=== PATIENT | female | born 1955 | race Caucasian/White ===

== ENCOUNTER → 2018-04-11 08:52 | Outpatient (CLI) | payer BC, OTHER, SELFPAY ==
[2018-04-11 11:32] LABS: Free T3 2.7 pg/mL (2.18-3.98); T4 Free Direct 0.94 ng/dL (0.76-1.46); Thyroid Stim Hormone (TSH) 2.26 uIU/mL (0.358-3.74)
== END ==
PROVIDERS: Family Provider Family Medicine; PCP Family Medicine; Visit Provider Nurse Practitioner
DX: E07.9 Disorder of thyroid, unspecified (principal)
CPT/HCPCS: 36415; 84439; 84443; 84481

== ENCOUNTER → 2018-04-16 15:19 | Outpatient (CLI) | payer BC, OTHER, SELFPAY | PROVIDERS: Family Provider Family Medicine; PCP Family Medicine; Visit Provider Nurse Practitioner | DX: E03.9 Hypothyroidism, unspecified (principal) | CPT/HCPCS: 76536 ==

== ENCOUNTER → 2018-04-29 14:23 | Outpatient (CLI) | payer BC, OTHER, SELFPAY ==
--- NOTE | 2018-04-29 14:27 | RAD_ITS ---
STUDY: X-RAY - RIGHT KNEE REASON FOR EXAM: Female, 63 years old. Bilateral knee pain x1 month TECHNIQUE: 4 view(s) of the knee. COMPARISON: None. FINDINGS: Normal visualized distal femur. Normal visualized proximal tibia and fibula. Normal proximal tibiofibular articulation. There is moderate degenerative arthrosis of the medial femorotibial compartment with moderate joint space narrowing. Normal lateral femorotibial compartment. There is mild degenerative arthrosis of the patellofemoral articulation. The soft tissue structures are unremarkable. RAD/Knee 4 or More Views IMPRESSION: Degenerative arthrosis. Electronically Signed: Amos Gaona MD at 15:27 EDT , Service support ,
--- NOTE | 2018-04-29 14:27 | RAD_ITS ---
STUDY: X-RAY - LEFT KNEE REASON FOR EXAM: Female, 63 years old. Bilateral knee pain x1 month TECHNIQUE: 4 view(s) of the knee. COMPARISON: None. FINDINGS: Normal visualized distal femur. Normal visualized proximal tibia and fibula. Normal proximal tibiofibular articulation. There is moderate degenerative arthrosis of the medial femorotibial compartment with moderate joint space narrowing. Normal lateral femorotibial compartment. There is mild degenerative arthrosis of the patellofemoral articulation. The soft tissue structures are unremarkable. RAD/Knee 4 or More Views IMPRESSION: Degenerative arthrosis. Left knee has a similar appearance to the right knee. Electronically Signed: Amos Gaona MD at 15:27 EDT , Service support ,
--- NOTE | 2018-04-29 14:27 | RAD_ITS ---
STUDY: X-RAY - PELVIS REASON FOR EXAM: Female, 63 years old. Pain TECHNIQUE: One view of the pelvis was obtained. COMPARISON: None. FINDINGS: There is a non-specific bowel gas pattern. Normal visualized soft tissue structures. Normal bilateral iliac wings, sacroiliac joints and visualized sacrum. Normal visualized bilateral superior and inferior pubic rami. Normal pubic symphysis. Normal ischial tuberosities. Normal visualized right femoral head. Normal right acetabulum. Normal right hip joint. Normal visualized left femoral head. Normal left acetabulum. Normal left hip joint. RAD/Pelvis 1 or 2 Views IMPRESSION: Normal x-ray examination of the pelvis. Electronically Signed: Amos Gaona MD at 15:28 EDT , Service support ,
[2018-04-29 16:08] LABS: Erythrocyte Sedimentation Rate 17 mm/hr (0-30)
[2018-04-29 16:10] LABS: ALB/GLOB Ratio 0.9 RATIO (0.9-2.4); AST(SGOT) 19 U/L (15-37); Alanine Aminotransfer ALT/SGPT 26 U/L (13-56); Albumin, Serum 3.6 g/dL (3.2-5.0); Alkaline Phosphatase 110 U/L (45-117); Anion Gap 9 (5-15); BUN 11 mg/dL (7-18); BUN/Creat Ratio 18.2 RATIO (10-20); CRP 6.47 mg/L (0.0-3.0); Calcium,Total 9.1 mg/dL (8.5-10.1); Chloride 108 mmol/L (98-107); EST Glomerular Filtration Rate 106 mL/min (>60); Est Glom Filt Rate - Afr Amer 128 mL/min (>60); Globulin 4.2 g/dL (2.2-4.2); Glucose 89 mg/dL (74-106); Potassium 4.5 mmol/L (3.5-5.1); Protein, Total 7.8 g/dL (6.4-8.2); Rheumatoid Factor < 10.0 IU/mL (<15); Sodium Level 146 mmol/L (136-145)
[2018-04-29 16:18] LABS: Absolute Neutrophil Count 5.3 X10^3/uL (2.0-7.7); Basophil# 0.15 X10^3/uL; Basophil% 1.6 % (0-1); Eosinophil# 0.35 X10^3/uL; Eosinophils% 3.7 % (0-5); Hematocrit 45.7 % (37-47); Hemoglobin 14.3 g/dl (12.0-15.0); Lymphocyte % 30.5 % (19-41); Mean Corp Hgb Conc 31.3 g/gl (32-36); Mean Corpuscular Hgb 28.8 pg (27.0-32.0); Mean Corpuscular Volume 92.1 fL (81-99); Mean Platelet Vol. 11.5 fl (6.2-12.0); Monocyte# 0.84 X10^3/uL; Monocyte% 8.8 % (0-10); Neutrophil # 5.27 X10^3/uL (2.7-7.7); Neutrophil % 55.3 % (47-70); POSITIVE COUNT NO; POSITIVE DIFFERENTIAL NO; POSITIVE MORPHOLOGY NO; Platelet Count 320 K/mm3 (150-450); RBC Distribution Width CV 14.7 % (11.6-14.6); RBC Distribution Width SD 49.6 fl (35.1-43.9); Red Blood Count 4.96 M/mm3 (4.2-5.4); White Blood Count 9.5 K/mm3 (4.4-11.0)
[2018-05-05 12:55] LABS: CCP IgG Antibodies 12 units (0-19); HEPATITIS B SURFACE AG Negative (Negative); HLA B27 Negative (.); Hep B Surface Antibodies Non Reactive (.); Hep C Antibodies <0.1 s/co ratio (0.0-0.9)
== END ==
PROVIDERS: Family Provider Family Medicine; PCP Family Medicine; Visit Provider Internal Medicine Rheumatology
DX: M06.4 Inflammatory polyarthropathy (principal); M17.0 Bilateral primary osteoarthritis of knee; M15.9 Polyosteoarthritis, unspecified; M51.37 Other intervertebral disc degeneration, lumbosacral region; E03.9 Hypothyroidism, unspecified
CPT/HCPCS: 36415; 72170; 73564; 80053; 81374; 85025; 85652; 86140; 86200; 86431; 86706; 86803; 87340

== ENCOUNTER → 2018-06-29 16:04 | Outpatient (CLI) | payer BC, OTHER, SELFPAY ==
[2018-06-29 17:58] LABS: Absolute Lymphocyte Count 2.64 X10^3/ul (0.83-4.51); Absolute Neutrophil Count 5.9 X10^3/uL (2.0-7.7); Basophil# 0.14 X10^3/uL; Basophil% 1.4 % (0-1); Eosinophil# 0.28 X10^3/uL; Eosinophils% 2.8 % (0-5); Hematocrit 45.8 % (37-47); Hemoglobin 14.7 g/dl (12.0-15.0); Lymphocyte # 2.64 X10^3/ul (4.0); Lymphocyte % 26.3 % (19-41); Mean Corp Hgb Conc 32.1 g/gl (32-36); Mean Corpuscular Hgb 29.3 pg (27.0-32.0); Mean Corpuscular Volume 91.2 fL (81-99); Mean Platelet Vol. 11.8 fl (6.2-12.0); Monocyte# 1.08 X10^3/uL; Monocyte% 10.8 % (0-10); Neutrophil # 5.88 X10^3/uL (2.7-7.7); Neutrophil % 58.6 % (47-70); Platelet Count 342 K/mm3 (150-450); RBC Distribution Width CV 14.7 % (11.6-14.6); RBC Distribution Width SD 48.2 fl (35.1-43.9); Red Blood Count 5.02 M/mm3 (4.2-5.4)
[2018-06-29 18:03] LABS: POSITIVE COUNT NO; POSITIVE DIFFERENTIAL NO; POSITIVE MORPHOLOGY NO
[2018-06-29 18:17] LABS: ALB/GLOB Ratio 0.9 RATIO (0.9-2.4); AST(SGOT) 15 U/L (15-37); Alanine Aminotransfer ALT/SGPT 26 U/L (13-56); Albumin, Serum 3.8 g/dL (3.2-5.0); Alkaline Phosphatase 115 U/L (45-117); Anion Gap 8 (5-15); BUN 11 mg/dL (7-18); BUN/Creat Ratio 11.8 RATIO (10-20); Calcium,Total 8.4 mg/dL (8.5-10.1); Chloride 105 mmol/L (98-107); Creatinine, Serum 0.93 mg/dL (0.55-1.02); EST Glomerular Filtration Rate 64 mL/min (>60); Est Glom Filt Rate - Afr Amer 78 mL/min (>60); Globulin 4.2 g/dL (2.2-4.2); Glucose 81 mg/dL (74-106); Potassium 3.6 mmol/L (3.5-5.1); Sodium Level 143 mmol/L (136-145)
== END ==
PROVIDERS: Family Provider Family Medicine; PCP Family Medicine; Referring Provider Internal Medicine Rheumatology; Visit Provider Internal Medicine Rheumatology
DX: M06.4 Inflammatory polyarthropathy (principal); M17.0 Bilateral primary osteoarthritis of knee; M15.9 Polyosteoarthritis, unspecified; M21.40 Flat foot [pes planus] (acquired), unspecified foot; M51.37 Other intervertebral disc degeneration, lumbosacral region; E03.9 Hypothyroidism, unspecified
CPT/HCPCS: 36415; 80053; 85025

== ENCOUNTER → 2018-11-30 16:09 | Outpatient (CLI) | payer BC, OTHER, SELFPAY ==
--- NOTE | 2018-11-30 16:17 | RAD_ITS ---
STUDY: X-RAY - LUMBAR SPINE REASON FOR EXAM: Female, 63 years old. Low back pain TECHNIQUE: 5 view(s) of the lumbar spine were obtained. COMPARISON: October 17, 2011 report only FINDINGS: Normal lumbar lordosis. There is no substantial scoliosis. Grade 1 spondylolisthesis at L4-5. Mild multilevel disc space narrowing and osteophytic spurring. No evidence for acute fracture or subluxation. The soft tissue structures are unremarkable. RAD/L/S Spine Min 4 Views IMPRESSION: Moderate degenerative changes. No evidence for acute fracture or subluxation. Electronically Signed: Darion Harley MD at 21:59 EDT , Service support ,
== END ==
PROVIDERS: Family Provider Family Medicine; PCP Family Medicine; Referring Provider Family Medicine; Visit Provider Family Medicine
DX: M54.5 Low back pain (principal)
CPT/HCPCS: 72110

== ENCOUNTER → 2019-01-19 | Outpatient (CLI) | payer BC, OTHER, SELFPAY ==
[2018-04-14 13:44] VITALS: BMI 44.1
[2019-01-19 17:36] LABS: Absolute Lymphocyte Count 2.28 X10^3/ul (0.83-4.51); Absolute Neutrophil Count 6.1 X10^3/uL (2.0-7.7); Basophil# 0.16 X10^3/uL; Basophil% 1.6 % (0-1); Eosinophil# 0.35 X10^3/uL; Eosinophils% 3.5 % (0-5); Hematocrit 41.5 % (37-47); Hemoglobin 13.4 g/dl (12.0-15.0); Lymphocyte # 2.28 X10^3/ul (4.0); Lymphocyte % 22.9 % (19-41); Mean Corp Hgb Conc 32.3 g/gl (32-36); Mean Corpuscular Hgb 28.9 pg (27.0-32.0); Mean Corpuscular Volume 89.4 fL (81-99); Mean Platelet Vol. 11.3 fl (6.2-12.0); Monocyte# 1.05 X10^3/uL; Monocyte% 10.5 % (0-10); Neutrophil # 6.13 X10^3/uL (2.7-7.7); Neutrophil % 61.5 % (47-70); Platelet Count 280 K/mm3 (150-450); RBC Distribution Width CV 14.9 % (11.6-14.6); RBC Distribution Width SD 48.7 fl (35.1-43.9); Red Blood Count 4.64 M/mm3 (4.2-5.4)
[2019-01-19 17:38] LABS: ALB/GLOB Ratio 0.9 RATIO (0.9-2.4); AST(SGOT) 13 U/L (15-37); Alanine Aminotransfer ALT/SGPT 21 U/L (13-56); Albumin, Serum 3.6 g/dL (3.2-5.0); Alkaline Phosphatase 106 U/L (45-117); Anion Gap 7 (5-15); BUN 10 mg/dL (7-18); BUN/Creat Ratio 16.1 RATIO (10-20); Calcium,Total 8.6 mg/dL (8.5-10.1); Chloride 105 mmol/L (98-107); Creatinine, Serum 0.62 mg/dL (0.55-1.02); EST Glomerular Filtration Rate 102 mL/min (>60); Est Glom Filt Rate - Afr Amer 124 mL/min (>60); Globulin 3.8 g/dL (2.2-4.2); Glucose 81 mg/dL (74-106); Potassium 3.5 mmol/L (3.5-5.1); Protein, Total 7.4 g/dL (6.4-8.2); Sodium Level 142 mmol/L (136-145)
[2019-01-19 17:39] LABS: POSITIVE COUNT NO; POSITIVE DIFFERENTIAL NO; POSITIVE MORPHOLOGY NO
== END | disposition home or self-care (01) ==
LOC: MTLAB 15:47
PROVIDERS: Family Provider Family Medicine; PCP Family Medicine; Referring Provider Internal Medicine Rheumatology; Visit Provider Internal Medicine Rheumatology
DX: M06.4 Inflammatory polyarthropathy (principal); Z79.899 Other long term (current) drug therapy; M17.0 Bilateral primary osteoarthritis of knee; M15.9 Polyosteoarthritis, unspecified; M21.40 Flat foot [pes planus] (acquired), unspecified foot; M51.37 Other intervertebral disc degeneration, lumbosacral region; E03.9 Hypothyroidism, unspecified
CPT/HCPCS: 36415; 80053; 85025

== ENCOUNTER 2019-05-16 08:34 | Emergency (ER) | payer BC, OTHER, SELFPAY ==
[2019-05-16 08:35] VITALS: BP 154/85; PULSE 75; RESP 17; TEMP 36.9; O2SAT 96; BMI 46.6
--- NOTE | 2019-05-16 09:00 | ED.DCSUM_ITS ---
- ER Visit Summary Date of Service: 05/16/19 Chief Complaint: [] History of Present Illness: The patient is a 64 F who presents the emergency room with low back pain. Patient states the pain began yesterday morning when she went to get out of bed. States he has had this pain before but not as bad. She notes pain going down the right leg. She tells me she has MRI results from 2011 which demonstrated lumbar disc disease. She states at one point she did visit with a surgeon from [facility] who felt that she was not an operative candidate. Patient denies any fevers. She denies any back injections. No IV drug use. She denies any rashes. No bowel or bladder dysfunction. She denies any acute muscle weakness or loss of sensation. Physical Examination: Afebrile vital signs are stable Patient points to the lower lumbar area near the L5-S1 junction as the source of pain. There is is no erythema rash or fluctuance to suggest abscess. Neurovascular she appears intact. There are no focal neurologic deficits Emergency Department Course and Treatment: Patient will be started on Flexeril, Toradol, and a few [place]. She was advised that I would recommend a follow-up appoint with her primary care doctor if this does not improve she may need to have a repeat MRI. She was advised to return instructions. Impression: 1. Acute lumbar radiculopathy This note was generated with [employer] dictation software. It may contain incorrect words, spelling, and punctuation that were not noted in review of the chart prior to signing ED Disposition - Plan for ED Patient: Disposition: Home or Assisted Living Instructions: BACK PAIN w/ SCIATICA Prescriptions: cycloBENZAPRine HCl [Flexeril] 10 mg PO TID PRN #20 tab PRN Reason: Muscle Spasm Prescription Printed Hydrocodone Bitart/Apap 5-325 [[place] 5MG-325MG] 1 tab PO Q6H PRN PRN 3 Days #10 tab PRN Reason: Pain Prescription Printed Ketorolac [Toradol] 10 mg PO Q8H PRN #15 tab PRN Reason: pain Prescription Printed Referrals: Norbert Gregg MD [Primary Care Provider] - 1-2 Weeks
== END 2019-05-16 09:42 | disposition home or self-care (01) ==
PROVIDERS: Emergency Provider Emergency Medicine; Family Provider Family Medicine; PCP Family Medicine
DX: M54.16 Radiculopathy, lumbar region (principal); M51.36 Other intervertebral disc degeneration, lumbar region; E66.9 Obesity, unspecified; E03.9 Hypothyroidism, unspecified; M19.90 Unspecified osteoarthritis, unspecified site; Z79.899 Other long term (current) drug therapy
CPT/HCPCS: 99282

== ENCOUNTER → 2019-05-21 16:05 | Outpatient (CLI) | payer BC, OTHER, SELFPAY ==
[2019-05-16 08:35] VITALS: BMI 46.6
[2019-05-21 18:08] LABS: Free T3 2.3 pg/mL (2.18-3.98); T4 Free Direct 0.87 ng/dL (0.76-1.46); Thyroid Stim Hormone (TSH) 2.88 uIU/mL (0.358-3.74)
== END ==
PROVIDERS: Family Provider Family Medicine; PCP Family Medicine; Referring Provider Nurse Practitioner; Visit Provider Nurse Practitioner
DX: E03.9 Hypothyroidism, unspecified (principal)
CPT/HCPCS: 36415; 84439; 84443; 84481

== ENCOUNTER → 2019-07-12 16:23 | Outpatient (CLI) | payer BC, OTHER, SELFPAY ==
[2019-07-12 17:46] LABS: ALB/GLOB Ratio 1.1 RATIO (0.9-2.4); AST(SGOT) 15 U/L (15-37); Alanine Aminotransfer ALT/SGPT 20 U/L (13-56); Albumin, Serum 3.8 g/dL (3.2-5.0); Alkaline Phosphatase 104 U/L (45-117); Anion Gap 5 (5-15); BUN 10 mg/dL (7-18); BUN/Creat Ratio 13.5 RATIO (10-20); Calcium,Total 8.8 mg/dL (8.5-10.1); Chloride 109 mmol/L (98-107); Creatinine, Serum 0.74 mg/dL (0.55-1.02); EST Glomerular Filtration Rate 83 mL/min (>60); Est Glom Filt Rate - Afr Amer 101 mL/min (>60); Globulin 3.6 g/dL (2.2-4.2); Glucose 101 mg/dL (74-106); Potassium 3.5 mmol/L (3.5-5.1); Protein, Total 7.4 g/dL (6.4-8.2); Sodium Level 144 mmol/L (136-145)
[2019-07-12 18:00] LABS: Absolute Lymphocyte Count 2.23 X10^3/uL (0.83-4.51); Absolute Neutrophil Count 6.6 X10^3/uL (2.0-7.7); Basophil# 0.16 X10^3/uL; Basophil% 1.5 % (0-1); Eosinophil# 0.31 X10^3/uL; Hemoglobin 13.9 g/dL (12.0-15.0); Lymphocyte # 2.23 X10^3/ul (4.0); Lymphocyte % 21.5 % (19-41); Mean Corp Hgb Conc 31.6 g/dL (32-36); Mean Corpuscular Hgb 28.8 pg (27.0-32.0); Mean Corpuscular Volume 91.3 fL (81-99); Mean Platelet Vol. 12.1 fl (6.2-12.0); Monocyte# 1.06 X10^3/uL; Monocyte% 10.2 % (0-10); NRBC Flagged by Analyzer 0 % (0-5); Neutrophil # 6.57 X10^3/uL (2.7-7.7); Neutrophil % 63.5 % (47-70); Platelet Count 307 K/mm3 (150-450); RBC Distribution Width CV 14.2 % (11.6-14.6); RBC Distribution Width SD 47.8 fl (35.1-43.9); Red Blood Count 4.82 M/mm3 (4.2-5.4); White Blood Count 10.4 K/mm3 (4.4-11.0)
== END ==
PROVIDERS: Family Provider Family Medicine; PCP Family Medicine; Referring Provider Internal Medicine Rheumatology; Visit Provider Internal Medicine Rheumatology
DX: M06.4 Inflammatory polyarthropathy (principal); M17.0 Bilateral primary osteoarthritis of knee; M15.9 Polyosteoarthritis, unspecified; M21.40 Flat foot [pes planus] (acquired), unspecified foot; M51.37 Other intervertebral disc degeneration, lumbosacral region; E03.9 Hypothyroidism, unspecified
CPT/HCPCS: 36415; 80053; 85025

== ENCOUNTER → 2019-08-16 13:30 | Outpatient (CLI) | payer BC, OTHER, SELFPAY ==
--- NOTE | 2019-08-16 13:32 | VDLE_ITS ---
Reason For Study: BLE EDEMA RIGHT LEFT CFV is compressible, spontaneous, phasic, CFV is compressible, spontaneous, phasic, competent and demonstrates normal competent, and demonstrates normal augmentation. augmentation. FV is compressible, spontaneous, phasic, FV is compressible, spontaneous, phasic, competent and demonstrates normal competent and demonstrates normal augmentation. augmentation. POP V is compressible, spontaneous, phasic, POP V is compressible, spontaneous, phasic, competent and demonstrates normal competent and demonstrates normal augmentation. augmentation. T/P Trunk is compressible. T/P Trunk is compressible. PTV is compressible. PTV is compressible. RT PerV is compressible. LT PerV is compressible. SFJ is competent and measures 0.74 X 0.96 cm. SFJ is competent and measures 0.87 X 0.89 cm. GSV proximal thigh measures 0.46 X 0.46 cm. GSV proximal thigh measures 0.51 X 0.51 cm. GSV at knee measures 0.32 X 0.33 cm. GSV at knee measures 0.28 X 0.30 cm. GSV is competent throughout. SSV proximal calf is competent and measures SSV proximal calf is competent and measures 0.27 X 0.29 cm. 0.40 X 0.43 cm. GSV above knee is competent. Procedure GSV below knee is competent. Exam performed in department. GSV at the knee is INCOMPETENT. The study was technically difficult. The exam was diagnostic. Interpretation Summary Deep veins of the lower extremities are bilaterally patent and compressible segmentally. There is no evidence of deep vein thrombosis on either side. Valvular competence appears intact within the proximal deep venous systems bilaterally. The great saphenous veins appear bilaterally patent and compressible segmentally. Sapheno-femoral junctions are bilaterally competent . The right great saphenous vein appears segmentally competent. The left great saphenous vein is incompetent at the level of the left knee, but is otherwise competent both above and below the knee. Small saphenous veins are patent and competent bilaterally. Ordering Physician: Laura Breen Referring Physician: Norbert Gregg Performed By: Kaitlyn Payton RDCS, RVT
== END ==
PROVIDERS: Family Provider Family Medicine; PCP Family Medicine; Referring Provider Podiatrist; Visit Provider Podiatrist
DX: I87.2 Venous insufficiency (chronic) (peripheral) (principal); R60.0 Localized edema
CPT/HCPCS: 93970

== ENCOUNTER → 2019-10-02 09:26 | Outpatient (CLI) | payer BC, SELFPAY ==
[2019-10-02 10:17] LABS: Hematocrit 43.1 % (37-47); Hemoglobin 13.7 g/dL (12.0-15.0); Mean Corp Hgb Conc 31.8 g/dL (32-36); Mean Corpuscular Hgb 29.3 pg (27.0-32.0); Mean Corpuscular Volume 92.1 fL (81-99); Mean Platelet Vol. 11.5 fl (6.2-12.0); Platelet Count 271 K/mm3 (150-450); RBC Distribution Width CV 14.1 % (11.6-14.6); RBC Distribution Width SD 47.7 fl (35.1-43.9); Red Blood Count 4.68 M/mm3 (4.2-5.4); White Blood Count 7.3 K/mm3 (4.4-11.0)
[2019-10-02 11:17] LABS: AST(SGOT) 13 U/L (15-37); Alanine Aminotransfer ALT/SGPT 19 U/L (13-56); Albumin, Serum 3.4 g/dL (3.2-5.0); Alkaline Phosphatase 117 U/L (45-117); Anion Gap 3 (5-15); BUN 8 mg/dL (7-18); BUN/Creat Ratio 14.2 RATIO (10-20); Calcium,Total 8.9 mg/dL (8.5-10.1); Chloride 111 mmol/L (98-107); Cholesterol 190 mg/dL (200); Creatinine, Serum 0.56 mg/dL (0.55-1.02); EST Glomerular Filtration Rate 114 mL/min (>60); Est Glom Filt Rate - Afr Amer 138 mL/min (>60); Globulin 3.5 g/dL (2.2-4.2); Glucose 89 mg/dL (74-106); High Density Lipoprotein 45 mg/dL; Potassium 3.7 mmol/L (3.5-5.1); Protein, Total 6.9 g/dL (6.4-8.2); Sodium Level 143 mmol/L (136-145); Thyroid Stim Hormone (TSH) 2.51 uIU/mL (0.358-3.74); Triglycerides 93 mg/dL; Very Low Density Lipoprotein 19 mg/dL (5-40)
== END ==
PROVIDERS: PCP Family Medicine; Referring Provider Student in an Organized Health Care Education/Training Program; Visit Provider Student in an Organized Health Care Education/Training Program
DX: M17.10 Unilateral primary osteoarthritis, unspecified knee (principal); E78.00 Pure hypercholesterolemia, unspecified; E03.9 Hypothyroidism, unspecified
CPT/HCPCS: 36415; 80053; 80061; 84443; 85027

== ENCOUNTER → 2020-04-04 16:01 | Outpatient (CLI) | payer BC, SELFPAY ==
--- NOTE | 2020-04-04 16:04 | RAD_ITS ---
STUDY: X-RAY - PELVIS AND BILATERAL HIPS REASON FOR EXAM: Female, 64 years old. BILATERAL HIP AND LEG PAIN, NO INJURY TECHNIQUE: AP view of the pelvis.? 2 views of the right hip, and 2 views of the left hip were obtained. COMPARISON: None. FINDINGS: There is a non-specific bowel gas pattern. Normal visualized soft tissue structures. Normal bilateral iliac wings, sacroiliac joints and visualized sacrum. Normal bilateral superior and inferior pubic rami. Normal pubic symphysis. Normal bilateral ischial tuberosities. Normal visualized right femoral head. Mild acetabular spurring. Normal right hip joint. Normal visualized left femoral head. Mild acetabular spurring.. Normal left hip joint. RAD/Hips B/L min 2 views w/ Pelvis IMPRESSION: Mild degenerative changes of the hips.. No evidence for acute hip or pelvic fractures Electronically Signed: Darion Harley MD at 22:58 EDT , Service support ,
== END ==
PROVIDERS: PCP Student in an Organized Health Care Education/Training Program; Referring Provider Student in an Organized Health Care Education/Training Program; Visit Provider Student in an Organized Health Care Education/Training Program
DX: M16.0 Bilateral primary osteoarthritis of hip (principal)
CPT/HCPCS: 73521

== ENCOUNTER → 2020-08-02 06:19 | Outpatient (CLI) | payer BC, SELFPAY ==
[2020-06-29 16:04] VITALS: BMI 46.6
--- NOTE | 2020-08-02 06:23 | MRI_ITS ---
STUDY: MRI RIGHT KNEE REASON FOR EXAM: Right knee pain for about 9 months with difficulty bending the knee, swelling. TECHNIQUE: Standardized fat and water weighted pulse sequences were obtained in all 3 orthogonal planes. COMPARISON: Radiographs 07/24/2020. FINDINGS: There is tear/degeneration of the posterior horn and body of the medial meniscus (proton-density sagittal images 28-32; proton-density coronal images 17-22). There is mild peripheral subluxation of the medial meniscus. There is arthrosis of the medial femorotibial compartment with marginal osteophytes, chondral loss (T2 sagittal image 17) and slight subchondral cystic change of the medial femoral condyle. Normal medial collateral ligamentous complex (MCL). Normal distal semimembranosus, gracilis and semitendinosus tendons. Normal lateral meniscus. Normal hyaline cartilage of the lateral femorotibial compartment. There are small marginal osteophytes of the lateral femorotibial compartment. Normal lateral femoral condyle and tibial plateau. Normal proximal tibiofibular articulation. Normal lateral collateral (fibular) ligament. Normal popliteus tendon. Normal biceps femoris tendon. There is intrasubstance mucoid degeneration of the anterior cruciate ligament (T2 series 9 images 11, 12). There is intrasubstance mucoid degeneration of the posterior cruciate ligament (T2 sagittal images 12-14). Normal congruent patellofemoral articulation. There is arthrosis of the patellofemoral compartment with marginal osteophytes and chondral thinning (T2 sagittal images 10-12). Normal medial and lateral patellar retinaculum. Normal visualized quadriceps tendon. There is mild distal patellar tendinosis (T2 sagittal image 11). Normal Hoffa''s fat pad. There is a small joint effusion. There is a small popliteal cyst (T2 coronal images 6-8). There is mild edema in the subcutis adipose space. There is mild cystic change in the proximal tibia at the insertion sites of the cruciate ligaments. MRI/Lower Ext Joint Only (Routine) IMPRESSION: Tear/degeneration of the medial meniscus. Arthrosis of the medial femorotibial and patellofemoral compartments. Mild distal patellar tendinosis. Small joint effusion. Small popliteal cyst. Electronically Signed: Wil Cheung MD at 8:03 EST Tel , Service support ,
== END ==
PROVIDERS: PCP Student in an Organized Health Care Education/Training Program; Referring Provider Orthopaedic Surgery; Visit Provider Orthopaedic Surgery
DX: M23.91 Unspecified internal derangement of right knee (principal)
CPT/HCPCS: 73721

== ENCOUNTER → 2020-11-11 08:52 | Outpatient (CLI) | payer BC, SELFPAY ==
[2020-08-21 15:25] VITALS: BMI 47.2
[2020-11-11 09:34] LABS: Hematocrit 44.4 % (37-47); Hemoglobin 14.2 g/dL (12.0-15.0); Mean Corpuscular Hgb 29.1 pg (27.0-32.0); Mean Platelet Vol. 11.8 fl (6.2-12.0); Platelet Count 316 K/mm3 (150-450); RBC Distribution Width CV 13.9 % (11.6-14.6); RBC Distribution Width SD 46.7 fl (35.1-43.9); Red Blood Count 4.88 M/mm3 (4.2-5.4); White Blood Count 7.4 K/mm3 (4.4-11.0)
[2020-11-11 10:13] LABS: ALB/GLOB Ratio 0.9 RATIO (0.9-2.4); AST(SGOT) 13 U/L (15-37); Alanine Aminotransfer ALT/SGPT 19 U/L (13-56); Albumin, Serum 3.6 g/dL (3.2-5.0); Alkaline Phosphatase 130 U/L (45-117); Anion Gap 4 (5-15); BUN 8 mg/dL (7-18); BUN/Creat Ratio 14.7 RATIO (10-20); Calcium,Total 8.4 mg/dL (8.5-10.1); Chloride 107 mmol/L (98-107); Cholesterol 204 mg/dL (200); Creatinine, Serum 0.55 mg/dL (0.55-1.02); EST Glomerular Filtration Rate 118 mL/min (>60); Est Glom Filt Rate - Afr Amer 143 mL/min (>60); Globulin 3.8 g/dL (2.2-4.2); Glucose 87 mg/dL (74-106); High Density Lipoprotein 41 mg/dL; Potassium 3.5 mmol/L (3.5-5.1); Protein, Total 7.4 g/dL (6.4-8.2); Sodium Level 141 mmol/L (136-145); Thyroid Stim Hormone (TSH) 2.41 uIU/mL (0.358-3.74); Triglycerides 129 mg/dL; Very Low Density Lipoprotein 26 mg/dL (5-40)
== END ==
PROVIDERS: PCP Student in an Organized Health Care Education/Training Program; Referring Provider Student in an Organized Health Care Education/Training Program; Visit Provider Student in an Organized Health Care Education/Training Program
DX: E78.00 Pure hypercholesterolemia, unspecified (principal); E03.9 Hypothyroidism, unspecified
CPT/HCPCS: 36415; 80053; 80061; 84443; 85027

== ENCOUNTER 2020-12-26 16:18 | Outpatient (RCR) | payer BC, SELFPAY ==
[2020-08-21 15:25] VITALS: BMI 47.2
== END 2021-01-30 23:59 ==
LOC: IMMUN 16:18
PROVIDERS: PCP Student in an Organized Health Care Education/Training Program; Visit Provider Family Medicine
DX: Z23 Encounter for immunization (principal)
CPT/HCPCS: 0001A; 0002A; 91300

== ENCOUNTER 2021-09-22 08:51 | Outpatient (CLI) | payer BC, SELFPAY ==
[2021-09-22 09:35] LABS: Hematocrit 41.5 % (37-47); Hemoglobin 13.5 g/dL (12.0-15.0); Mean Corp Hgb Conc 32.5 g/dL (32-36); Mean Corpuscular Hgb 29.9 pg (27.0-32.0); Mean Platelet Vol. 11.1 fl (6.2-12.0); Platelet Count 282 K/mm3 (150-450); RBC Distribution Width CV 14.3 % (11.6-14.6); RBC Distribution Width SD 48.1 fl (35.1-43.9); Red Blood Count 4.51 M/mm3 (4.2-5.4); White Blood Count 7.2 K/mm3 (4.4-11.0)
[2021-09-22 09:59] LABS: ALB/GLOB Ratio 0.9 RATIO (0.9-2.4); AST(SGOT) 24 U/L (15-37); Alanine Aminotransfer ALT/SGPT 33 U/L (13-56); Albumin, Serum 3.5 g/dL (3.2-5.0); Alkaline Phosphatase 114 U/L (45-117); Anion Gap 3 (5-15); BUN 9 mg/dL (7-18); BUN/Creat Ratio 14.8 RATIO (10-20); Calcium,Total 8.4 mg/dL (8.5-10.1); Chloride 110 mmol/L (98-107); Cholesterol 206 mg/dL (200); Creatinine, Serum 0.61 mg/dL (0.55-1.02); EST Glomerular Filtration Rate 104 mL/min (>60); Est Glom Filt Rate - Afr Amer 126 mL/min (>60); Globulin 3.7 g/dL (2.2-4.2); Glucose 96 mg/dL (74-106); High Density Lipoprotein 43 mg/dL; Protein, Total 7.2 g/dL (6.4-8.2); Sodium Level 140 mmol/L (136-145); Thyroid Stim Hormone (TSH) 2.72 uIU/mL (0.358-3.74); Triglycerides 108 mg/dL; Very Low Density Lipoprotein 22 mg/dL (5-40)
[2021-09-24 08:53] LABS: Hepatitis C Antibody Non-Reactive (Nonreactive)
== END 2021-09-22 23:59 | disposition home or self-care (01) ==
PROVIDERS: PCP Student in an Organized Health Care Education/Training Program; Referring Provider Student in an Organized Health Care Education/Training Program; Visit Provider Student in an Organized Health Care Education/Training Program
DX: Z11.59 Encounter for screening for other viral diseases (principal); Z13.6 Encounter for screening for cardiovascular disorders; G51.4 Facial myokymia; E03.9 Hypothyroidism, unspecified
CPT/HCPCS: 36415; 80053; 80061; 83735; 84443; 85027; 86803

== ENCOUNTER 2021-09-28 16:09 | Outpatient (CLI) | payer BC, SELFPAY ==
[2021-09-28 17:54] LABS: Albumin, Serum 3.7 g/dL (3.2-5.0); BUN 15 mg/dL (7-18); BUN/Creat Ratio 23.1 RATIO (10-20); Calcium,Total 8.7 mg/dL (8.5-10.1); Chloride 109 mmol/L (98-107); Creatinine, Serum 0.65 mg/dL (0.55-1.02); EST Glomerular Filtration Rate 96 mL/min (>60); Est Glom Filt Rate - Afr Amer 117 mL/min (>60); Glucose 92 mg/dL (74-106); Phosphorus 2.9 mg/dL (2.5-4.9); Potassium 3.6 mmol/L (3.5-5.1); Sodium Level 141 mmol/L (136-145)
[2021-09-28 18:03] LABS: Vitamin D,25 Hydroxy 18.5 ng/mL
== END 2021-09-28 23:59 | disposition home or self-care (01) ==
LOC: LAB 16:12
PROVIDERS: PCP Student in an Organized Health Care Education/Training Program; Visit Provider Student in an Organized Health Care Education/Training Program
DX: E83.51 Hypocalcemia (principal)
CPT/HCPCS: 36415; 80069; 82306; 82330; 83970

== ENCOUNTER → 2022-04-03 | Outpatient (CLI) | payer BC, SELFPAY ==
[2022-04-03 17:34] LABS: Erythrocyte Sedimentation Rate 46 mm/hr (0-30)
[2022-04-03 17:36] LABS: Hematocrit 41.3 % (37-47); Hemoglobin 13.4 g/dL (12.0-15.0); Mean Corp Hgb Conc 32.4 g/dL (32-36); Mean Corpuscular Hgb 29.8 pg (27.0-32.0); Mean Corpuscular Volume 91.8 fL (81-99); Mean Platelet Vol. 10.9 fl (6.2-12.0); Platelet Count 432 K/mm3 (150-450); RBC Distribution Width CV 14.3 % (11.6-14.6); RBC Distribution Width SD 48.7 fl (35.1-43.9); White Blood Count 10.5 K/mm3 (4.4-11.0)
[2022-04-03 18:15] LABS: ALB/GLOB Ratio 0.8 RATIO (0.9-2.4); AST(SGOT) 16 U/L (15-37); Alanine Aminotransfer ALT/SGPT 25 U/L (13-56); Albumin, Serum 3.3 g/dL (3.2-5.0); Alkaline Phosphatase 113 U/L (45-117); Anion Gap 7 (5-15); BUN 10 mg/dL (7-18); BUN/Creat Ratio 15.6 RATIO (10-20); Chloride 106 mmol/L (98-107); Creatinine, Serum 0.64 mg/dL (0.55-1.02); EST Glomerular Filtration Rate 98 mL/min (>60); Est Glom Filt Rate - Afr Amer 118 mL/min (>60); Globulin 4.2 g/dL (2.2-4.2); Glucose 95 mg/dL (74-106); Protein, Total 7.5 g/dL (6.4-8.2); Sodium Level 141 mmol/L (136-145); Thyroid Stim Hormone (TSH) 3.24 uIU/mL (0.358-3.74)
[2022-04-03 18:28] LABS: Hemoglobin A1c 5.9 % (3.8-5.6)
== END | disposition home or self-care (01) ==
LOC: LAB 16:19
PROVIDERS: PCP Student in an Organized Health Care Education/Training Program; Visit Provider Student in an Organized Health Care Education/Training Program
DX: S81.809A Unspecified open wound, unspecified lower leg, initial encounter (principal); M79.89 Other specified soft tissue disorders; R73.09 Other abnormal glucose
CPT/HCPCS: 36415; 80053; 83036; 84443; 85027; 85652; 86140

== ENCOUNTER → 2022-04-18 | Outpatient (CLI) | payer BC, SELFPAY ==
[2022-04-18 10:33] LABS: Hematocrit 48.6 % (37-47); Hemoglobin 15.9 g/dL (12.0-15.0); Mean Corp Hgb Conc 32.7 g/dL (32-36); Mean Corpuscular Hgb 29.1 pg (27.0-32.0); Mean Corpuscular Volume 88.8 fL (81-99); Mean Platelet Vol. 11.5 fl (6.2-12.0); Platelet Count 469 K/mm3 (150-450); RBC Distribution Width SD 45.4 fl (35.1-43.9); Red Blood Count 5.47 M/mm3 (4.2-5.4); White Blood Count 10.9 K/mm3 (4.4-11.0)
[2022-04-18 10:34] LABS: Erythrocyte Sedimentation Rate 40 mm/hr (0-30)
[2022-04-18 10:59] LABS: Anion Gap 9 (5-15); BUN 20 mg/dL (7-18); BUN/Creat Ratio 13.8 RATIO (10-20); CRP 7.23 mg/L (0.0-3.0); Calcium,Total 9.4 mg/dL (8.5-10.1); Chloride 109 mmol/L (98-107); Creatinine, Serum 1.45 mg/dL (0.55-1.02); EST Glomerular Filtration Rate 38 mL/min (>60); Est Glom Filt Rate - Afr Amer 46 mL/min (>60); Glucose 122 mg/dL (74-106); Potassium 3.5 mmol/L (3.5-5.1); Sodium Level 137 mmol/L (136-145)
== END | disposition home or self-care (01) ==
LOC: LAB 10:11
PROVIDERS: PCP Student in an Organized Health Care Education/Training Program; Visit Provider Student in an Organized Health Care Education/Training Program
DX: B99.9 Unspecified infectious disease (principal); R19.7 Diarrhea, unspecified
CPT/HCPCS: 36415; 80048; 85027; 85652; 86140; 87493

== ENCOUNTER → 2022-05-14 | Outpatient (CLI) | payer BC, SELFPAY ==
[2022-05-14 10:28] LABS: Erythrocyte Sedimentation Rate 23 mm/hr (0-30)
[2022-05-14 10:29] LABS: Hematocrit 43.5 % (37-47); Hemoglobin 13.8 g/dL (12.0-15.0); Mean Corp Hgb Conc 31.7 g/dL (32-36); Mean Corpuscular Hgb 29.2 pg (27.0-32.0); Mean Corpuscular Volume 92.2 fL (81-99); Mean Platelet Vol. 12.4 fl (6.2-12.0); Platelet Count 289 K/mm3 (150-450); RBC Distribution Width CV 14.6 % (11.6-14.6); RBC Distribution Width SD 49.5 fl (35.1-43.9); Red Blood Count 4.72 M/mm3 (4.2-5.4); White Blood Count 7.4 K/mm3 (4.4-11.0)
[2022-05-14 11:03] LABS: ALB/GLOB Ratio 0.8 RATIO (0.9-2.4); AST(SGOT) 28 U/L (15-37); Alanine Aminotransfer ALT/SGPT 34 U/L (13-56); Albumin, Serum 3.2 g/dL (3.2-5.0); Alkaline Phosphatase 147 U/L (45-117); Anion Gap 4 (5-15); BUN 4 mg/dL (7-18); BUN/Creat Ratio 6.6 RATIO (10-20); CRP 9.72 mg/L (0.0-3.0); Calcium,Total 8.8 mg/dL (8.5-10.1); Chloride 108 mmol/L (98-107); Creatinine, Serum 0.61 mg/dL (0.55-1.02); EST Glomerular Filtration Rate 104 mL/min (>60); Est Glom Filt Rate - Afr Amer 126 mL/min (>60); Glucose 89 mg/dL (74-106); Potassium 3.4 mmol/L (3.5-5.1); Protein, Total 7.2 g/dL (6.4-8.2); Sodium Level 141 mmol/L (136-145)
== END | disposition home or self-care (01) ==
LOC: LAB 09:51
PROVIDERS: PCP Student in an Organized Health Care Education/Training Program; Referring Provider Student in an Organized Health Care Education/Training Program; Visit Provider Student in an Organized Health Care Education/Training Program
DX: L98.9 Disorder of the skin and subcutaneous tissue, unspecified (principal)
CPT/HCPCS: 36415; 80053; 85027; 85652; 86140

== ENCOUNTER → 2022-06-29 | Outpatient (CLI) | payer BC, SELFPAY ==
[2022-06-29 09:44] LABS: Hematocrit 41.7 % (37-47); Hemoglobin 13.4 g/dL (12.0-15.0); Mean Corp Hgb Conc 32.1 g/dL (32-36); Mean Corpuscular Hgb 29.5 pg (27.0-32.0); Mean Corpuscular Volume 91.9 fL (81-99); Mean Platelet Vol. 11.8 fl (6.2-12.0); Platelet Count 282 K/mm3 (150-450); RBC Distribution Width CV 14.7 % (11.6-14.6); RBC Distribution Width SD 49.9 fl (35.1-43.9); Red Blood Count 4.54 M/mm3 (4.2-5.4); White Blood Count 8.1 K/mm3 (4.4-11.0)
[2022-06-29 10:10] LABS: ALB/GLOB Ratio 0.9 RATIO (0.9-2.4); AST(SGOT) 30 U/L (15-37); Alanine Aminotransfer ALT/SGPT 42 U/L (13-56); Albumin, Serum 3.5 g/dL (3.2-5.0); Alkaline Phosphatase 146 U/L (45-117); Anion Gap 3 (5-15); BUN 8 mg/dL (7-18); CRP 5.62 mg/L (0.0-3.0); Calcium,Total 8.7 mg/dL (8.5-10.1); Chloride 108 mmol/L (98-107); EST Glomerular Filtration Rate 130 mL/min (>60); Est Glom Filt Rate - Afr Amer 157 mL/min (>60); Globulin 3.8 g/dL (2.2-4.2); Glucose 101 mg/dL (74-106); Potassium 3.8 mmol/L (3.5-5.1); Protein, Total 7.3 g/dL (6.4-8.2); Sodium Level 141 mmol/L (136-145); T4 Free Direct 0.87 ng/dL (0.76-1.46); Thyroid Stim Hormone (TSH) 3.63 uIU/mL (0.358-3.74)
[2022-06-29 11:13] LABS: Erythrocyte Sedimentation Rate 11 mm/hr (0-30)
== END | disposition home or self-care (01) ==
LOC: LAB 08:55
PROVIDERS: PCP Student in an Organized Health Care Education/Training Program; Visit Provider Student in an Organized Health Care Education/Training Program
DX: D64.9 Anemia, unspecified (principal); R79.82 Elevated C-reactive protein (CRP); E87.6 Hypokalemia; E03.9 Hypothyroidism, unspecified
CPT/HCPCS: 36415; 80053; 84439; 84443; 85027; 85652; 86140; 86850; 86900; 86901

== ENCOUNTER → 2022-10-05 | Outpatient (CLI) | payer BC, SELFPAY ==
[2022-10-05 09:27] LABS: Hematocrit 43.4 % (37-47); Hemoglobin 13.7 g/dL (12.0-15.0); Mean Corp Hgb Conc 31.6 g/dL (32-36); Mean Corpuscular Hgb 29.3 pg (27.0-32.0); Mean Corpuscular Volume 92.9 fL (81-99); Mean Platelet Vol. 11.3 fl (6.2-12.0); Platelet Count 287 K/mm3 (150-450); RBC Distribution Width CV 13.8 % (11.6-14.6); RBC Distribution Width SD 46.8 fl (35.1-43.9); Red Blood Count 4.67 M/mm3 (4.2-5.4); White Blood Count 7.7 K/mm3 (4.4-11.0)
[2022-10-05 09:44] LABS: Hemoglobin A1c 6.1 % (3.8-5.6)
[2022-10-05 09:57] LABS: AST(SGOT) 16 U/L (15-37); Alanine Aminotransfer ALT/SGPT 24 U/L (13-56); Albumin, Serum 3.4 g/dL (3.2-5.0); Alkaline Phosphatase 111 U/L (45-117); Anion Gap 6 (5-15); BUN 5 mg/dL (7-18); BUN/Creat Ratio 8.6 RATIO (10-20); Calcium,Total 8.5 mg/dL (8.5-10.1); Chloride 112 mmol/L (98-107); Cholesterol 220 mg/dL (200); Creatinine, Serum 0.58 mg/dL (0.55-1.02); EST Glomerular Filtration Rate 109 mL/min (>60); Est Glom Filt Rate - Afr Amer 132 mL/min (>60); Globulin 3.4 g/dL (2.2-4.2); Glucose 101 mg/dL (74-106); High Density Lipoprotein 40 mg/dL; Protein, Total 6.8 g/dL (6.4-8.2); Sodium Level 146 mmol/L (136-145); T4 Free Direct 0.96 ng/dL (0.76-1.46); Thyroid Stim Hormone (TSH) 2.55 uIU/mL (0.358-3.74); Triglycerides 99 mg/dL; Very Low Density Lipoprotein 20 mg/dL (5-40)
[2022-10-07 07:45] LABS: PTHIN 107.4 pg/mL (18.4-80.1)
[2022-10-07 08:02] LABS: Vitamin D,25 Hydroxy 22.8 ng/mL
== END | disposition home or self-care (01) ==
LOC: LAB 08:43
PROVIDERS: PCP Student in an Organized Health Care Education/Training Program; Referring Provider Student in an Organized Health Care Education/Training Program; Visit Provider Student in an Organized Health Care Education/Training Program
DX: Z13.6 Encounter for screening for cardiovascular disorders (principal); R73.03 Prediabetes; E03.9 Hypothyroidism, unspecified; E55.9 Vitamin D deficiency, unspecified
CPT/HCPCS: 36415; 80053; 80061; 82306; 83036; 83970; 84439; 84443; 85027

== ENCOUNTER → 2023-10-18 | Outpatient (CLI) | payer BC, SELFPAY ==
--- OUTSIDE RECORDS SUMMARY | 2023-10-18 08:51 | XMS RPT_ITS | CCD ---
Author Name Unknown Address [address] [place] [address] Organization [facility] Care Team Providers Care Security Flex Officer Name Role Phone Melissa Parker NP Unavailable [phone] JAYSON ROGERS DO Primary Care Physician [phone] Carmita Sargent PT Unavailable Unavailable JAYSON ROGERS DO Attending Unavailable JAYSON ROGERS DO Primary Care Unavailable JAYSON ROGERS DO Attending Unavailable JAYSON ROGERS DO Primary Care Unavailable JAYSON ROGERS DO Attending Unavailable JAYSON ROGERS DO Primary Care Unavailable Allergies Allergy Classification Reported Allergen(s) Allergy Type Date of Onset Reaction(s) Facility (7 sources) caffeine; Translations: [Caffeine] drug allergy stomach cramps, Pain [facility] Work Phone: (4 sources) [employer]WE[employer]ERS drug allergy convulsions [facility] Work Phone: (3 sources) Artificial sweetners Food allergy [facility] Medications Current Medications Medication Drug Class(es) Dates Sig (Normalized) Sig (Original) cholestyramine 4 g/4.8 g oral powder for reconstitution (1 source) Start: 04-11-2022 End: 05-11-2022 take 4 doses by mouth four times daily as needed for diarrhea cholestyramine 4 g/4.8 g oral powder for reconstitution Dose : 4 gram(s) =, Oral, QID, PRN Diarrhea, # 120 packet(s), 0 Refill(s), Pharmacy: [id number], 152.5, cm, 04/11/22 16:20:00 EDT, Height Start Date: 04/11/22 Stop Date: 05/11/22 Status: Ordered DME MISCellaneous (4 sources) Start: 02-28-2022 DME MISCellaneous See Instructions, dispense one pair of lymphedema pumps; dx I 89.0, # 1 EA, 0 Refill(s), Lymphedema, 108 Start Date: 02/28/22 Status: Ordered Completed/Discontinued Medications Medication Drug Class(es) Dates Sig (Normalized) Sig (Original) 3 MAGU SALVE (4 sources) Start: 6 3 MAGU SALVE as needed 3 MAGU SALVE Rika Brady Dossi DC cephalexin 500 mg oral capsule (1 source) Cephalosporin Antibacterial Start: 2 End: 2 cephalexin 500 mg oral capsule Dose : 500 mg = 1 cap(s), Oral, q8h, # 9 cap(s), 0 Refill(s), Pharmacy: [id number], 152.5, cm, 04/11/22 16:20:00 EDT, Height, 102 Start Date: 04/11/22 Stop Date: 04/14/22 Status: Ordered methylprednisoLONE 4 mg oral tablet (4 sources) Corticosteroid Start: 2 End: 2 MEDROL 4 MG TBPK take as directed, 5 first day, 4 the next, then 3, then 2, then 1 on last day METHYLPREDNISOLONE [id number] Ariane Clayton MULTIPLE VITAMIN (4 sources) Start: 2 take 1 tablet by mouth once daily MULTIVITAMINS CAPS One tablet by mouth daily MULTIPLE VITAMIN [id number] Ariane Clayton NOPALEA (4 sources) Start: 2 NOPALEA 4 0z daily NOPALEA Ariane Clayton SOOTHANOL X2 (4 sources) Start: 6 SOOTHANOL X2 as needed SOOTHANOL X2 Rika Vosi DC VITAMIN C 500MG (4 sources) Start: 6 VITAMIN C 500MG daily VITAMIN C 500MG Rika Vosi DC VITAMIN D3 1000IU (4 sources) Start: 6 VITAMIN D3 1000IU Daily VITAMIN D3 1000IU Rika Vela DC ZIMS MAX FREEZE (4 sources) Start: 6 ZIMS MAX FREEZE as needed ZIMS MAX FREEZE Rika Vela DC Problems Active Problems Problem Classification Problem Date Documented Date Episodic/Chronic Anxiety disorders (3 sources) Claustrophobia 03-12-2021 Chronic Cataract (3 sources) Cataract 04-17-2021 Chronic Chronic ulcer of skin (1 source) Ulcer of lower extremity 04-11-2022 Chronic Diabetes mellitus without complication (1 source) Prediabetes 04-11-2022 Episodic Heart valve disorders (3 sources) Tricuspid valve regurgitation 08-03-2019 Chronic Heart valve disorders (3 sources) Systolic murmur 07-26-2019 Episodic Lymphadenitis (2 sources) Supraclavicular lymphadenopathy 05-22-2021 Episodic Nutritional deficiencies (1 source) Vitamin D deficiency 10-01-2021 Chronic Osteoarthritis (3 sources) Osteoarthritis of knee 07-14-2019 Chronic Other bone disease and musculoskeletal deformities (20 sources) Segmental and somatic dysfunction; Translations: [Segmental and somatic dysfunction of lumbar region] Onset: 06-17-2016 06-17-2016 Episodic Other bone disease and musculoskeletal deformities (2 sources) Cervical somatic dysfunction 03-12-2021 Episodic Other bone disease and musculoskeletal deformities (2 sources) Somatic dysfunction of lumbar region 03-12-2021 Episodic Other bone disease and musculoskeletal deformities (2 sources) Somatic dysfunction of sacral region 03-12-2021 Episodic Other connective tissue disease (3 sources) Swelling of lower limb 10-25-2019 Episodic Other diseases of veins and lymphatics (1 source) Lymphedema 02-28-2022 Chronic Other diseases of veins and lymphatics (3 sources) Venous insufficiency of leg 10-13-2019 Episodic Other injuries and conditions due to external causes (1 source) At low risk for fall 12-20-2021 Episodic Other nervous system disorders (3 sources) Numbness of foot 03-12-2021 Episodic Other nervous system disorders (1 source) Facial myokymia 09-19-2021 Episodic Other nervous system disorders (1 source) Muscle twitch 06-27-2021 Episodic Other nutritional; endocrine; and metabolic disorders (3 sources) Body mass index 40+ - severely obese 10-31-2020 Chronic Other nutritional; endocrine; and metabolic disorders (3 sources) Morbid obesity 10-25-2019 Chronic Other nutritional; endocrine; and metabolic disorders (3 sources) Raised low density lipoprotein cholesterol 07-26-2019 Chronic Other screening for suspected conditions (not mental disorders or infectious disease) (2 sources) Hormone increase; Translations: [Viral screening status] 10-01-2021 Episodic Residual codes; unclassified (3 sources) Immunization due 06-21-2020 Episodic Rheumatoid arthritis and related disease (3 sources) Inflammatory polyarthropathy 10-25-2019 Chronic Skin and subcutaneous tissue infections (1 source) Cellulitis of lower limb 2022 Episodic Spondylosis; intervertebral disc disorders; other back problems (3 sources) Degeneration of lumbar intervertebral disc 07-26-2019 Chronic Spondylosis; intervertebral disc disorders; other back problems (13 sources) Lumbar radiculopathy; Translations: [Backache] 10-17-2011 Episodic Thyroid disorders (7 sources) Hypothyroidism; Translations: [Hypothyroidism, unspecified] Onset: 12-25-2016 12-25-2016 Chronic Unclassified (2 sources) Patient encounter status 09-19-2021 Past or Other Problems Problem Classification Problem Date Documented Da te Episodic/Chronic Other skin disorders (2 sources) Disorder of the skin and subcutaneous tissue, unspecified; Translations: [Disorder of the skin and subcutaneous tissue, unspecified] Onset: 04-25-2022 Episodic Results Test Name Value Interpretation Reference Range Facil ity Vital Signs Date Time Vital Sign Value Performing Clinician Facility 12-25-2016 15:06-0400 BMI (Body Mass Index) 43.83 kg/m2 Melissa [facility] Work Phone: 12-25-2016 15:06-0400 Body Temperature 98.1 [degF] Melissa [facility] Work Phone: 12-25-2016 15:06-0400 BP Diastolic 74 mm[Hg] Melissa Parker NP [facility] Work Phone: 12-25-2016 15:06-0400 BP Systolic 114 mm[Hg] Melissa Parker NP [facility] Work Phone: 12-25-2016 15:06-0400 Height 154.94 cm Melissa Parker NP [facility] Work Phone: 12-25-2016 15:06-0400 Pulse (Heart Rate) 73 /min Melissa [facility] Work Phone: 12-25-2016 15:06-0400 Pulse Oximetry 95 % Melissa Parker NP [facility] Work Phone: 12-25-2016 15:06-0400 Respiratory Rate 18 /min Melissa [facility] Work Phone: 12-25-2016 15:06-0400 Weight 105.24 kg Melissa Parker NP [facility] Work Phone: 12-25-2016 15:06-0400 Weight 105.23 kg Melissa Parker NP [facility] Work Phone: 06-17-2016 16:16-0400 BMI (Body Mass Index) 44.4 kg/m2 Melissa Parker NP [facility] Work Phone: 06-17-2016 16:16-0400 BP Diastolic 82 mm[Hg] Melissa Parker NP [facility] Work Phone: 06-17-2016 16:16-0400 BP Systolic 175 mm[Hg] Melissa Parker NP [facility] Work Phone: 06-17-2016 16:16-0400 Weight 106.6 kg Melissa Parekr NP [facility] Work Phone: 10-17-2011 15:56-0500 Height 154.94 cm Melissa Parker NP [facility] Work Phone: Encounters Encounter Date Encounter Type Care Provider Facility Start: 10-29-2022 End: 10-30-2022 ambulatory JAYSON ROGERS DO Facility:B Start: 04-25-2022 End: 04-25-2022 Patient encounter procedure JAYSON ROGERS DO [facility] Start: 04-25-2022 End: 04-26-2022 ambulatory JAYSON ROGERS DO Facility:[facility] Start: 06-04-2021 End: 06-04-2021 Patient encounter procedure JAYSON ROGERS DO [facility] Start: 05-31-2021 End: 05-31-[address] ISMA LEMA MD [facility] Procedures Date Procedure Procedure Detail Performing Clinician Start: 05-06-2017 End: 05-18-2017 Thyroid stimulating hormone (TSH) Melissa Parker DIRECTOR [employer] Work Phone: Start: 05-06-2017 End: 05-18-2017 Thyroxine (T4) free Melissa Parker DIRECTOR [employer] Work Phone: Start: 12-25-2016 End: 12-25-2016 Thyroid stimulating hormone (TSH) Melissa Parker DIRECTOR [employer] Work Phone: Start: 12-25-2016 End: 12-25-2016 Thyroxine (T4) free Melissa Parker DIRECTOR [employer] Work Phone: Start: 07-04-2016 End: 07-04-2016 Chiropractic manipulation Rika Brady Dossi DC Work Phone: Start: 07-01-2016 End: 07-01-2016 Chiropract manj 1-2 regions Rika B Jaclyn i DC Work Phone: Start: 06-27-2016 End: 06-27-2016 Chiropract manj 1-2 regions Rika B Jaclyn i DC Work Phone: Start: 06-24-2016 End: 06-24-2016 Chiropract manj 1-2 regions Rika B Jaclyn i DC Work Phone: Start: 06-18-2016 End: 06-18-2016 Chiropract manj 1-2 regions Rika B Jaclyn i DC Work Phone: Start: 06-17-2016 End: 06-17-2016 Chiropract manj 1-2 regions Rika B Jaclyn i DC Work Phone: Start: 08-18-1999 Decompression of med oswaldo nerve DR ISMA LEMA MD Plan of Treatment Date Care Activity Detail Author Start: 05-06-2017 End: 05-18-2017 Thyroid stimulating hormone (TSH) *TSH [facility] Work Phone: Start: 05-06-2017 End: 05-18-2017 Thyroxine (T4) free *T4 free [facility] Work Phone: Start: 12-31-2016 End: 12-31-2016 Thyroid stimulating hormone (TSH) *TSH [facility] Work Phone: Start: 12-31-2016 End: 12-31-2016 Thyroxine (T4) free *T4 free [facility] Work Phone: Start: 12-25-2016 End: 12-25-2016 Appointment Appointment [facility] Work Phone: Start: 12-25-2016 End: 12-25-2016 Thyroid stimulating hormone (TSH) *TSH [facility] Work Phone: Start: 12-25-2016 End: 12-25-2016 Thyroxine (T4) free *T4 free [facility] Work Phone: Start: 07-04-2016 End: 07-04-2016 Follow up Appt 2x/week Follow up Appt 2x/week [facility] Work Phone: Start: 07-01-2016 End: 07-01-2016 Follow up Appt 3x/week Follow up Appt 3x/week [facility] Work Phone: Start: 06-27-2016 End: 06-27-2016 Follow up Appt 3x/week Follow up Appt 3x/week [facility] Work Phone: Start: 06-24-2016 End: 06-24-2016 Follow up Appt 3x/week Follow up Appt 3x/week [facility] Work Phone: Start: 06-18-2016 End: 06-18-2016 Follow up Appt 3x/week Follow up Appt 3x/week [facility] Work Phone: Start: 06-17-2016 End: 06-17-2016 Follow up Appt 3x/week Follow up Appt 3x/week [facility] Work Phone: Immunizations Immunization Date Immunization Notes Care Provider Saranya martinez 08-02-2021 COVID-19, mRNA, LNP- S, PF, 30 mcg/0.3 mL dose; Translations: [[employer] COVID-19 Vaccine] JAYSON KEN [facility] 06-27-2021 influenza, high dose seasonal, preservative-free; Translations: [Fluad Quadrivalent PF ] JAYSON ROGERS DO [facility] 01-16-2021 SARS-CoV-2 mRNA (tozinameran) vaccine JAYSON ROGERS DO [facility] 12-26-2020 SARS-CoV-2 mRNA (tozinameran) vaccine JAYSON ROGERS DO [facility] 06-21-2020 influenza, injectabl e, quadrivalent, preservative free; Translations: [Fluarix PF Quadrivalent ] DR ISMA LEMA MD [facility] 05-18-2015 influenza virus vaccine, unspecified formulation DR ISMA LEMA MD [facility] Payers Date Payer Category Payer Unknown [id number] 1955 Unknown [id number] 1955 Unknown [id number] 1955 Unknown [id number] Social History Date Type Detail Facility Start: 02-22-2019 Never smoked t obacco (finding) [facility] Sex Assigned At Female [facility] Evaluation + Plan note LaboratoryRadiology Note Date & Type Note Facility Evaluation + Plan note Future Appointments Appointment Date:06/27/2021 04:00:00 PM Scheduled Provider:JAYSON ROGERS DO Location:[facility] Appointment Type:PC Office Procedure OMT Future Scheduled TestsThyroid Stimulating Hormone 05/22/21Free T4 05/22/21Free T3 05/22/21US Soft Tissue Mass 05/22/21XR Spine Lumbar W/Obliques 4 Views 01/02/21 [facility] Evaluation + Plan note LaboratoryRadiology Note Date & Type Note Facility Evaluation + Plan note Future Appointments Appointment Date:06/27/2021 04:00:00 PM Scheduled Provider:JAYSON ROGERS DO Location:[facility] Appointment Type:PC Office Procedure OMT Future Scheduled TestsThyroid Stimulating Hormone 05/22/21Fr T4 05/22/21Free T3 05/22/21XR Spine Lumbar W/Obliques 4 Views 01/02/21 [facility] Evaluation + Plan note Laboratory Note Date & Type Note Facility Evaluation + Plan note Future Appointments Appointment Date:05/16/2022 04:30:00 PM Scheduled Provider:JAYSON ROGERS DO Location:[facility] Appointment Type:PC Office Procedure OMT Future Scheduled TestsC-Reactive Protein 04/19/22Complete Blood Count 04/19/22Sedimentation Rate Automated 04/19/22Complete Metabolic Panel 04/19/22 [facility] Hospital course Narrative Note Date & Type Note Facility Hospital course Narrative No data available for this section [facility] Hospital Discharge instructions Note Date & Type Note Facility Hospital Discharge instructions No data available for this section [facility] Progress note Note Date & Type Note Facility Progress note No data available for this section [facility] Summary Purpose Family History No Family History Records FoundNo Family History Records Found Advance Directives No Advanced Directives Records FoundNo Advanced Directives Records Found Additional Source Comments INFORMATION SOURCE (unrecogn ized section and content) DATE CREATED AUTHOR AUTHOR'S ORGANIZ ATION 10/30/2022 [facility] ([place]) Care Team (unrecognized sect ion and content) Care Team Personnel Name: Arie Stave Grader Lisa PT Position: P3 Scheduling - Cigar Head Piercer Advanced Member Role: Other Name: JAYSON ROGERS DO Position: P4 Physician - Primary Care Med Service: Active Provider Member Role: Primary Care Physician Address: Address: [address] [place], [place] [address] [place] Care Team Related Persons Name: GENET WILKES FOR RECORDS PERTAINING TO PATIENTS WHO ARE OR HAVE BEEN ENROLLED IN A CHEMICAL DEPENDENCY/SUBSTANCEABUSE PROGRAM, SOME INFORMATION MAY BE OMITTED. This clinical summary was aggregated from multiple sources. Caution should be exercised in using it in the provision of clinical care. This summary normalizes information from multiple sources, and as a consequence, information in this document may materially change the coding, format and clinical context of patient data. In addition, data may be omitted in some cases. CLINICAL DECISIONS SHOULD BE BASED ON THE PRIMARY CLINICAL RECORDS. [facility] [employer] [facility]. provides no warranty or guarantee of the accuracy or completeness of information in this document.
[2023-10-18 09:33] LABS: Hematocrit 42.9 % (37-47); Hemoglobin 13.9 g/dL (12.0-15.0); Mean Corp Hgb Conc 32.4 g/dL (32-36); Mean Corpuscular Hgb 29.6 pg (27.0-32.0); Mean Corpuscular Volume 91.5 fL (81-99); Mean Platelet Vol. 11.5 fl (6.2-12.0); Platelet Count 292 K/mm3 (150-450); RBC Distribution Width CV 13.8 % (11.6-14.6); RBC Distribution Width SD 46.5 fl (35.1-43.9); Red Blood Count 4.69 M/mm3 (4.2-5.4); White Blood Count 7.2 K/mm3 (4.4-11.0)
[2023-10-18 09:57] LABS: Hemoglobin A1c 5.7 % (3.8-5.6)
[2023-10-18 09:58] LABS: ALB/GLOB Ratio 0.9 RATIO (0.9-2.4); AST(SGOT) 24 U/L (15-37); Alanine Aminotransfer ALT/SGPT 25 U/L (13-56); Albumin, Serum 3.4 g/dL (3.2-5.0); Alkaline Phosphatase 134 U/L (45-117); Anion Gap 2 (5-15); BUN 8 mg/dL (7-18); BUN/Creat Ratio 12.6 RATIO (10-20); Calcium,Total 8.8 mg/dL (8.5-10.1); Chloride 113 mmol/L (98-107); Cholesterol 200 mg/dL (200); Creatinine, Serum 0.64 mg/dL (0.55-1.02); EST Glomerular Filtration Rate 98 mL/min (>60); Est Glom Filt Rate - Afr Amer 119 mL/min (>60); Globulin 3.7 g/dL (2.2-4.2); Glucose 90 mg/dL (74-106); High Density Lipoprotein 41 mg/dL; Protein, Total 7.1 g/dL (6.4-8.2); Sodium Level 142 mmol/L (136-145); T4 Free Direct 0.93 ng/dL (0.76-1.46); Thyroid Stim Hormone (TSH) 1.83 uIU/mL (0.358-3.74); Triglycerides 96 mg/dL; Very Low Density Lipoprotein 19 mg/dL (5-40)
[2023-10-20 08:29] LABS: Vitamin D,25 Hydroxy 45.4 ng/mL
== END | disposition home or self-care (01) ==
LOC: LAB 08:49
PROVIDERS: PCP Student in an Organized Health Care Education/Training Program; Referring Provider Student in an Organized Health Care Education/Training Program; Visit Provider Student in an Organized Health Care Education/Training Program
DX: Z13.6 Encounter for screening for cardiovascular disorders (principal); E03.9 Hypothyroidism, unspecified; E55.9 Vitamin D deficiency, unspecified
CPT/HCPCS: 36415; 80053; 80061; 82306; 83036; 84439; 84443; 85027

== ENCOUNTER → 2024-05-01 | Outpatient (CLI) | payer BC, SELFPAY ==
[2024-05-01 10:05] LABS: Absolute Lymphocyte Count 2.22 X10^3/uL (0.83-4.51); Absolute Neutrophil Count 4.2 X10^3/uL (2.0-7.7); Basophil# 0.14 X10^3/uL; Basophil% 1.8 % (0-1); Eosinophil# 0.39 X10^3/uL; Eosinophils% 5.1 % (0-5); Hematocrit 42.9 % (37-47); Hemoglobin 13.7 g/dL (12.0-15.0); Lymphocyte # 2.22 X10^3/ul (0.83-4.51); Mean Corp Hgb Conc 31.9 g/dL (32-36); Mean Corpuscular Hgb 29.3 pg (27.0-32.0); Mean Corpuscular Volume 91.9 fL (81-99); Mean Platelet Vol. 11.6 fl (6.2-12.0); Monocyte# 0.66 X10^3/uL; Monocyte% 8.6 % (0-10); NRBC Flagged by Analyzer 0 % (0-5); Neutrophil # 4.21 X10^3/uL (2.7-7.7); Platelet Count 298 K/mm3 (150-450); RBC Distribution Width CV 14.1 % (11.6-14.6); RBC Distribution Width SD 47.4 fl (35.1-43.9); Red Blood Count 4.67 M/mm3 (4.2-5.4); White Blood Count 7.7 K/mm3 (4.4-11.0)
[2024-05-01 10:32] LABS: Hemoglobin A1c 5.6 % (3.8-5.6)
[2024-05-01 10:37] LABS: ALB/GLOB Ratio 0.9 RATIO (0.9-2.4); AST(SGOT) 19 U/L (15-37); Alanine Aminotransfer ALT/SGPT 24 U/L (13-56); Albumin, Serum 3.3 g/dL (3.2-5.0); Alkaline Phosphatase 115 U/L (45-117); Anion Gap 5 (5-15); BUN 8 mg/dL (7-18); BUN/Creat Ratio 13.4 RATIO (10-20); Calcium,Total 8.6 mg/dL (8.5-10.1); Chloride 108 mmol/L (98-107); Cholesterol 210 mg/dL (200); EST Glomerular Filtration Rate 105 mL/min (>60); Est Glom Filt Rate - Afr Amer 127 mL/min (>60); Globulin 3.6 g/dL (2.2-4.2); Glucose 91 mg/dL (74-106); High Density Lipoprotein 45 mg/dL; Potassium 3.6 mmol/L (3.5-5.1); Protein, Total 6.9 g/dL (6.4-8.2); Sodium Level 142 mmol/L (136-145); T4 Free Direct 0.94 ng/dL (0.76-1.46); Triglycerides 128 mg/dL; Very Low Density Lipoprotein 26 mg/dL (5-40)
[2024-05-03 08:25] LABS: Hepatitis C Antibody Non-Reactive (Nonreactive); Vitamin D,25 Hydroxy 33.9 ng/mL
== END | disposition home or self-care (01) ==
PROVIDERS: PCP Student in an Organized Health Care Education/Training Program; Referring Provider Student in an Organized Health Care Education/Training Program; Visit Provider Student in an Organized Health Care Education/Training Program
DX: Z13.6 Encounter for screening for cardiovascular disorders (principal); E03.9 Hypothyroidism, unspecified; E55.9 Vitamin D deficiency, unspecified; Z11.59 Encounter for screening for other viral diseases
CPT/HCPCS: 36415; 80053; 80061; 82306; 83036; 84439; 84443; 85025; 86803

== ENCOUNTER → 2025-05-17 | Outpatient (CLI) | payer MEDICARE, SELFPAY ==
--- OUTSIDE RECORDS SUMMARY | 2025-04-12 12:37 | XMS RPT_ITS ---
Author Name Auto Generated Organization [facility] Care Team Providers Care Power Driven Brush Maker Name Role Phone JAYSON ROGERS DO Attending Unavailable JAYSON ROGERS DO Primary Care Unavailable PROBLEMS No Problem Records Found PROCEDURES No Procedure Records Found RESULTS BD BONE DENSITY DEXA AXIAL SKELETON Observed: 04/12/2025 2:00 PM Status: F Source: [facility] ORIGINAL EXAMINATION: BONE DENSITOMETRY04/12/2025 1:35 pm TECHNIQUE: Dual energy bone densitometry lumbar spine and left hip. COMPARISON: October 29, 2022 HISTORY: Reason for Exam: Osteoporosis Screening FINDINGS: T Score Left Femoral Neck: -1.8 Left Femoral Neck: 0.652 (g/cm2) T Score Left Hip: -0.2 Left Hip: 0.918 (g/cm2) T Score Lumbar Spine: 0.4 Lumbar Spine: 1.092 (g/cm2) BMD Change from previous Hip:-6.2%, significant BMD Change from previous Lumbar Spine:-2.4%, significant FRAX score: 10 year risk major osteoporotic fracture 9.2 %. 10 year risk hip fracture 1.5 %. The BHOF f/k/a NOF recommends that FDA-approved medical therapies be considered in post-menopausal women and men age >/= 50 years with a: * Hip or vertebral fracture, or * T-score of /= 20% for major osteoporotic fractures or * >/= 3% for hip fractures All treatment decisions require clinical judgement and consideration of individual patient factors, including patient preferences, comorbidities, previous drug use, risk factors not captured in the FRAX registered model (e.g., frailty, falls, vitamin D deficiency, increased bone turnover, interval significant decline in bone density) and possible under- or over-estimation of fracture risk by FRAX. IMPRESSION: Osteopenia. Interpreted by: Amy Brooke MD Preliminary Report By: Amy Brooke MD Electronically signed By Amy Brooke MD Dictated Date: 04/12/2025 5:09:10 PM Prelim Date: 04/12/2025 5:10:28 PM Sign Date: 04/12/2025 5:10:28 PM Ordering Provider: JAYSON ROGERS ALLERGIES No Allergies Records Found ENCOUNTERS ADMIT/DISCHARGE ACCOUNT NUMBER ADMITTING ENCOUNTER CLASS LOC ATION SOURCE 04/12/2025/ [id number] Ambulatory [facility]IN[facility] PAY[facility] ENCOUNTER GUARANTOR PAYER SUBSCRIBER SOURCE 04/12/2025 LADAN WILKESDOB: [place] [email or web address] (HP) Primary Insurance:[employer] INSCOPolicy Number: [id number] tive Date:5961-09-38Wcrr Name:[facility] [place] [id number], [place] [address]PJ: LADAN Moore WISEDOB: [id number] [place] [place] [address]Azi: (HP) () [facility]
--- OUTSIDE RECORDS SUMMARY | 2025-04-12 12:37 | XMS RPT_ITS ---
Author Name Auto Generated Organization [facility] Care Team Providers Care Telesales Supervisor Name Role Phone JAYSON ROGERS DO Attending Unavailable JAYSON ROGERS DO Primary Care Unavailable PROBLEMS No Problem Records Found PROCEDURES No Procedure Records Found RESULTS BD BONE DENSITY DEXA AXIAL SKELETON Observed: 04/12/2025 2:00 PM Status: F Source: [facility] ORIGINAL EXAMINATION: BONE DENSITOMETRY04/12/2025 1:35 pm TECHNIQUE: [...] ADMITTING ENCOUNTER CLASS LOC ATION SOURCE 04/12/2025/ [id number] Ambulatory RUNGE MAINBuilding: [facility] PAYERS ENCOUNTER GUARANTOR PAYER SUBSCRIBER SOURCE 04/12/2025 LADAN WILKESD[place]: [place] [email or web address]: (HP) Primary Insurance:[employer] INSCOPolicy Number: [id number] tive Date:[id number] Name:[facility] [place] [id number], [place] [address]EJ: LADAN Moore WISEDOB: [id number] [place] [place] [address]Yts: (HP) () [facility]
[2025-05-17 10:23] LABS: Hematocrit 44.9 % (37-47); Hemoglobin 14.8 g/dL (12.0-15.0); Mean Corp Hgb Conc 33.0 g/dL (32-36); Mean Corpuscular Volume 89.8 fL (81-99); Mean Platelet Vol. 11.8 fl (6.2-12.0); Platelet Count 262 K/mm3 (150-450); RBC Distribution Width CV 14.0 % (11.6-14.6); RBC Distribution Width SD 46.4 fl (35.1-43.9); Red Blood Count 5.00 M/mm3 (4.2-5.4); White Blood Count 6.8 K/mm3 (4.4-11.0)
[2025-05-17 11:21] LABS: AST(SGOT) 25 U/L (<=31); Alanine Aminotransfer ALT/SGPT 18 U/L (<=34); Albumin, Serum 4.1 g/dL (3.4-4.8); Alkaline Phosphatase 110 U/L (35-104); Anion Gap 12 (5-15); BUN 11 mg/dL (4-19); BUN/Creat Ratio 17.2 RATIO (10-20); Calcium,Total 9.1 mg/dL (7.6-11.0); Carbon Dioxide 24.1 mmol/L (21.0-32.0); Chloride 103 mmol/L (98-108); Cholesterol 230 mg/dL (<=200); Globulin 3.3 g/dL (2.2-4.2); Glucose 101 mg/dL (70-99); Low Density Lipoprotein Calc. 159 mg/dL; Potassium 4.0 mmol/L (3.3-5.1); Triglycerides 145 mg/dL; Very Low Density Lipoprotein 29 mg/dL (5-40); Vitamin D,25 Hydroxy 39.1 ng/mL (30-100); cholesterol:hdl ratio screen 5.46
== END | disposition home or self-care (01) ==
LOC: MTLAB 08:20
PROVIDERS: PCP Student in an Organized Health Care Education/Training Program; Referring Provider Student in an Organized Health Care Education/Training Program; Visit Provider Student in an Organized Health Care Education/Training Program
DX: Z13.6 Encounter for screening for cardiovascular disorders (principal); E55.9 Vitamin D deficiency, unspecified; E03.9 Hypothyroidism, unspecified
CPT/HCPCS: 36415; 80053; 80061; 82306; 83036; 84439; 84443; 85027